=== PATIENT | female | born 1955 ===

== ENCOUNTER 2021-06-08 09:30 | Inpatient (IN) | payer OTHER ==
[~2021-06-08] VITALS: Ht 154.9 cm; Wt 49.9 kg
[2021-06-08] MEDS ORDERED: NEURONTIN800 MG PO (12:01)
[2021-06-08] MEDS ORDERED: CATAFLAN (12:01)
[2021-06-08] MEDS ORDERED: ULTRAM50 MG PO (12:02)
[2021-06-08] MEDS ORDERED: ALPRAZOLAM ODT1 MG PO (12:02)
[2021-06-15] MEDS ORDERED: PERCOCET 5-3251 EACH PO (13:52)
[2021-06-15] MEDS ORDERED: NEURONTIN800 MG PO (13:52)
[2021-06-15] MEDS ORDERED: COLACE100 MG PO (13:52)
[2021-06-15] MEDS ORDERED: MEDROLPACK PO (13:52)
[2021-06-15] MEDS ORDERED: DIAZEPAM5 MG PO (13:52)
[2021-06-15] MEDS ORDERED: BACTRIM DS TAB1 EACH PO (13:52)
== END 2021-06-16 15:23 | disposition home or self-care (01) | DRG 455 ==
LOC: SURH 06-14 09:30 → O/R 06-15 07:34 → PED 06-15 07:34 → SURH 06-15 09:30 → PED 06-15 19:00
PROVIDERS: ADMIT Orthopaedic Surgery Orthopaedic Surgery of the Spine; ATTEND Orthopaedic Surgery Orthopaedic Surgery of the Spine
PROC: 0SG30J1 Fusion of Lumbosacral Joint with Synthetic Substitute, Posterior Approach, Posterior Column, Open Approach (ICD-10-PCS; 2021-06-15)
PROC: 07DR3ZZ Extraction of Iliac Bone Marrow, Percutaneous Approach (ICD-10-PCS; 2021-06-15)
PROC: 0SG30AJ Fusion of Lumbosacral Joint with Interbody Fusion Device, Posterior Approach, Anterior Column, Open Approach (ICD-10-PCS; principal; 2021-06-15 17:30)
DX: M43.17 Spondylolisthesis, lumbosacral region (principal); M48.07 Spinal stenosis, lumbosacral region

== ENCOUNTER 2023-02-10 10:52 | Inpatient (IN) | payer OTHER ==
[~2023-02-10] VITALS: Ht 154.9 cm; Wt 45.4 kg
[~2023-02-10 10:52] MED LIST: ALPRAZOLAM ODT1 MG PO; BACTRIM DS TAB1 EACH PO; CATAFLAN; COLACE100 MG PO; DIAZEPAM5 MG PO; MEDROLPACK PO; NEURONTIN800 MG PO; PERCOCET 5-3251 EACH PO; ULTRAM50 MG PO
[2023-02-13] MEDS ORDERED: LYRICA150 MG PO (14:37)
[2023-02-13] MEDS ORDERED: COZAAR50 MG PO (14:37)
[2023-02-16] MEDS ORDERED: PERCOCET 5-3251 EACH PO (12:47)
[2023-02-16] MEDS ORDERED: BACTRIM DS TAB1 EACH PO (12:47)
[2023-02-16] MEDS ORDERED: MEDROLPACK PO (12:47)
[2023-02-16] MEDS ORDERED: COLACE100 MG PO (12:48)
[2023-02-16] MEDS ORDERED: NEURONTIN800 MG PO (12:48)
== END 2023-02-18 14:36 | DRG 519 ==
LOC: SURG 02-16 07:37 → O/R 02-16 07:37 → SURG 02-16 11:45 → O/R 02-16 14:42 → SURG 02-16 16:09 → SURH 02-17 14:34
PROVIDERS: ADMIT Orthopaedic Surgery Orthopaedic Surgery of the Spine; ATTEND Orthopaedic Surgery Orthopaedic Surgery of the Spine
PROC: 0SP304Z Removal of Internal Fixation Device from Lumbosacral Joint, Open Approach (ICD-10-PCS; 2023-02-16)
PROC: 0SW Lower Joints, Revision (ICD-10-PCS; 2023-02-16)
PROC: 4A12X4Z Monitoring of Cardiac Electrical Activity, External Approach (ICD-10-PCS; 2023-02-16)
PROC: 07DR0ZZ Extraction of Iliac Bone Marrow, Open Approach (ICD-10-PCS; 2023-02-16)
PROC: 00JU0ZZ Inspection of Spinal Canal, Open Approach (ICD-10-PCS; principal; 2023-02-16 17:30)
DX: M54.17 Radiculopathy, lumbosacral region (principal); M96.0 Pseudarthrosis after fusion or arthrodesis; M48.061 Spinal stenosis, lumbar region without neurogenic claudication